=== PATIENT | male | born 1995 | race Caucasian/White ===

== ENCOUNTER 2017-05-08 21:03 | Emergency (ER) | payer OTHER ==
[~2017-05-08] VITALS: Ht 172.7 cm; Wt 84.8 kg
[~2017-05-08 21:03] MED LIST: ATIVAN0.5 MG PO; Ativan PO; BACID1 CAP PO; BENADRYL ALLERG25 MG PO; FLAGYL500 MG/100 IV; FLONASE16 G1 BOTH NARES; Flonase BOTH NARES; KEPPRA500 MG PO; MIRALAX17 GM PO; MULTIVITAMIN1 EAC2 PO; PREDNISONE20 MG PO; ROCEPHIN 2 GM VI2 GM IM; TYLENOL REGULA325 MG PO; VANCOMYCIN1500 MG/25 IV; ZOFRAN ODT4 MG PO; ZYRTEC10 M2 PO
[2017-05-08] MEDS ORDERED: MOTRIN600 MG PO (23:37)
[2017-05-08] MEDS ORDERED: ROBAXIN750 MG PO (23:37)
[2017-05-09 00:10] VITALS: BP 127/87
== END 2017-05-09 00:11 | disposition home or self-care (01) ==
LOC: EME 21:03
DX: S06.0X0A Concussion without loss of consciousness, initial encounter (principal); V49.50XA Passenger injured in collision with unspecified motor vehicles in traffic accident, initial encounter; Y92.410 Unspecified street and highway as the place of occurrence of the external cause; F17.200 Nicotine dependence, unspecified, uncomplicated
CPT/HCPCS: 99281; 99284